=== PATIENT | male | born 1995 | race Two or more races ===

== ENCOUNTER 2016-09-01 12:43 | Emergency (ER) | payer SELFPAY ==
[~2016-09-01] VITALS: Ht 170.2 cm; Wt 96.2 kg
[2016-09-01] MEDS ORDERED: SODIUM CHLORIDE 0.9% 1,000ML IVBOLUS ONE (13:30)
[2016-09-01] MEDS ORDERED: FAMOTIDINE 20 MG/2 ML IVP ONE (13:30)
[2016-09-01] MEDS ORDERED: SODIUM CHLORIDE FLUSH 10ML SYR IVF ONE (13:30)
[2016-09-01] MEDS ORDERED: FAMOTIDINE 20 MG/2 ML ONE (13:40)
[2016-09-01] MEDS ORDERED: HYDROmorphone 1 MG/ML, 1ML ONE ×2 (13:40→14:15)
[2016-09-01] MEDS: HYDROmorphone 1 MG/ML, 1ML IVPush PRN ×2 (13:45→14:17)
[2016-09-01 13:56] LABS: ASPARTATE AMINO TRANSFERASE 48 U/L (15-37); BLOOD UREA NITROGEN 11 mg/dL (7-18)
[2016-09-01 16:00] VITALS: BP 132/90
== END 2016-09-01 16:01 | disposition home or self-care (01) ==
LOC: ED 14:32
DX: K59.00 Constipation, unspecified (principal)
CPT/HCPCS: 36415; 74020; 80053; 81003; 83690; 85025; 96361; 96374; 96376; 99285; J1170; J7030; S0028

== ENCOUNTER 2016-10-23 18:45 | Observation (INO) | payer OTHER ==
[~2016-10-23] VITALS: Ht 170.2 cm; Wt 91.1 kg
[2016-10-23] MEDS ORDERED: ALPR1TAB2 PO (19:05)
[2016-10-23 19:35] LABS: HEMOGLOBIN 15.9 g/dL (13.7-18.0); WHITE BLOOD COUNT 10.2 x10^3/uL (3.4-10)
[2016-10-23 19:44] LABS: BLOOD UREA NITROGEN 11 mg/dL (7-18)
[2016-10-23 19:47] LABS: ASPARTATE AMINO TRANSFERASE 23 U/L (15-37)
[2016-10-23 19:59] LABS: ACETAMINOPHEN < 2 mcg/mL (10-30)
[2016-10-23 20:04] LABS: DAU SCREEN DISCLAIMER
[2016-10-24] MEDS ORDERED: INSULIN ASPART 100 UNITS/ML, PEN SQ-INSULIN SCH (07:00)
[2016-10-24 08:44] VITALS: BP 115/75
[2016-10-24 19:51] VITALS: BP 120/77
[2016-10-25 06:02] LABS: BLOOD UREA NITROGEN 10 mg/dL (7-18)
[2016-10-25 08:25] VITALS: BP 112/69
[2016-10-25 20:38] VITALS: BP 120/70
[2016-10-25] MEDS: LAMOTRIGINE 25 MG TABLET PO SCH (20:47)
[2016-10-26 07:25] VITALS: BP 121/57
[2016-10-26] MEDS: LAMOTRIGINE 25 MG TABLET PO SCH (08:53)
== END 2016-10-26 10:31 ==
LOC: ED 19:12 → EDIP 23:03 → 3E 10-24 00:20
PROVIDERS: ADMIT Family Medicine; ATTEND Family Medicine
DX: T40.602A Poisoning by unspecified narcotics, intentional self-harm, initial encounter (principal); R73.9 Hyperglycemia, unspecified; N17.0 Acute kidney failure with tubular necrosis; F41.9 Anxiety disorder, unspecified; Y92.89 Other specified places as the place of occurrence of the external cause; Z82.49 Family history of ischemic heart disease and other diseases of the circulatory system; Z83.3 Family history of diabetes mellitus
CPT/HCPCS: 36415; 80048; 80053; 80307; 80329; 83036; 85025; 99285; G0378; G0480

== ENCOUNTER 2019-02-14 16:23 | Emergency (ER) | payer MEDICAID ==
[~2019-02-14] VITALS: Ht 170.2 cm; Wt 105.4 kg
[~2019-02-14 16:23] MED LIST: ALPR1TAB2 PO
[2019-02-14] MEDS ORDERED: SODIUM CHLORIDE 0.9% 1,000 ML IV ONE (16:25)
[2019-02-14] MEDS ORDERED: LORazepam 2 MG/ML, 1ML IVPush ONE (16:30)
[2019-02-14] MEDS ORDERED: ONDANSETRON 2MG/ML, 2ML IVPush ONE (16:30)
[2019-02-14] MEDS ORDERED: ONDANSETRON 2MG/ML, 2ML ONE (16:34)
[2019-02-14] MEDS ORDERED: LORazepam 2 MG/ML, 1ML ONE ×2 (16:35→16:41)
--- NOTE | 2019-02-14 16:46 | NUR ---
THIS IS A 23 YO M BIB [facility] FOR ALOC. FATHER REPORTS GIVING PATIENT 1 OF NARCAN AT HOME. [facility] GAVE 1 OF NARCAN. PATIENT DENIES TAKING OPIATES BUT TAKES GHB AND STATES "I'M GOING THROUGH GHB WITHDRAWAL". PATIENT IS HYPERVENTILATING AND STATES HE IS HAVING TACHYCARDIA. HR IS 85. VS STABLE. FATHER IS AT BEDSIDE. PATIENT MEDICATED WITH 2MG ATIVAN IM.
--- NOTE | 2019-02-14 16:49 | NUR ---
FATHER STATES THAT HIS BROTHER CALLED REPORTING THAT THE PATIENT WAS UNRESPONSIVE.
[2019-02-14] MEDS ORDERED: ONDANSETRON ODT 8 MG ONE (16:55)
--- NOTE | 2019-02-14 16:55 | NUR ---
PATIENT VOMITED A SMALL AMOUNT OF EMESIS.
[2019-02-14] MEDS ORDERED: LORazepam 2 MG/ML, 1ML IM ONE (17:00)
[2019-02-14] MEDS ORDERED: ONDANSETRON ODT 8 MG PO ONE (17:00)
--- NOTE | 2019-02-14 17:06 | NUR ---
PATIENT AWARE WE NEED URINE SAMPLE.
[2019-02-14 17:13] LABS: BASOPHILS # (AUTO) 0.07 x10^3/uL (0-0.1); BASOPHILS % (AUTO) 1 % (0-1); EOSINOPHILS # (AUTO) 0.24 x10^3/uL (0-0.4); EOSINOPHILS % (AUTO) 2 % (1-7); LYMPHOCYTES # (AUTO) 2.46 x10^3/uL (1-3.4); LYMPHOCYTES % (AUTO) 19 % (22-44); MD NO; MEAN CORPUSCULAR HEMOGLOBIN 29.4 pg (27.5-34.5); MEAN CORPUSCULAR HGB CONC 31.8 g/dL (33.2-36.2); MEAN CORPUSCULAR VOLUME 92.7 fL (81-97); MEAN PLATELET VOLUME 8.1 fL (7.4-10.4); MONOCYTES # (AUTO) 0.61 x10^3/uL (0.2-0.8); MONOCYTES % (AUTO) 5 % (2-9); NEUTROPHILS # (AUTO) 9.55 x10^3/uL (1.8-6.8); NEUTROPHILS % (AUTO) 74 % (42-75); PLATELET COUNT 387 x10^3/uL (130-400); RED BLOOD COUNT 5.96 x10^6/uL (4.38-5.82); RED CELL DISTRIBUTION WIDTH 15.5 % (9.4-14.8)
[2019-02-14 17:19] LABS: ALBUMIN 4.2 g/dL (3.4-5.0); ANION GAP 14 mmol/L (5-15); CALCIUM 9.4 mg/dL (8.5-10.1); CHLORIDE 107 mmol/L (98-107)
--- NOTE | 2019-02-14 17:22 | NUR ---
PATIENT PLACED ON 2L NC.
[2019-02-14 17:23] LABS: ALANINE AMINOTRANSFERASE 104 U/L (12-78); ALKALINE PHOSPHATASE 55 U/L (45-117); BILIRUBIN,TOTAL 0.9 mg/dL (0.2-1.0); CREATININE 1.23 mg/dL (0.7-1.3); TOTAL PROTEIN 9.1 g/dL (6.4-8.2)
[2019-02-14 17:24] LABS: SALICYLATE LEVEL < 1.7 mg/dL (2.8-20.0)
--- NOTE | 2019-02-14 17:28 | NUR ---
RADIOLOGY IN ROOM.
--- NOTE | 2019-02-14 17:50 | NUR ---
FATHERS PHONE NUMBER IS [phone]
--- NOTE | 2019-02-14 18:15 | NUR ---
PATIENT IS SLEEPING ON GURNEY, SNORING, CHEST RISE AND FALL PRESENT. VS STABLE. WILL CONTINUE TO MONITOR.
--- NOTE | 2019-02-14 18:42 | NUR ---
Pt report from clark pickering. This rn to assume care of pt. Pt sleeping comfortably on gurney. Rr even and unlabored. Nadn. Pike.
--- NOTE | 2019-02-14 18:48 | NUR ---
Pt awoken from painful stimuli and aa+ox4. at bedside for reassessment. Md states "no tolentino" on the ua and not needed at this time. Pt self reports drug use of only ghb. Pt is slow to respond to questions, but responds appropriately.
--- NOTE | 2019-02-14 19:24 | NUR ---
Pt responsive to name and a+ox4. Pt no longer sluggish to respond and conversing appropriately. PT maintaining O2 sat off oxygen.
[2019-02-14 19:25] VITALS: BP 112/53
--- NOTE | 2019-02-14 19:32 | NUR ---
Pt states he self doses himself w/ GHB for anxiety attacks. Aware of dangers of utilizing ghb and pt educated on dangers and not to utilize.
--- NOTE | 2019-02-14 19:43 | NUR ---
Father called for a ride for eminent d/c. Awaiting ride.
--- NOTE | 2019-02-14 19:47 | NUR ---
Pt denies any attempts of self harm tonight or any si.
--- NOTE | 2019-02-14 20:16 | NUR ---
Pt came to ed w/o shoes or shirt. Given shirt and socks prior to d/c.
== END 2019-02-14 20:24 | disposition home or self-care (01) ==
LOC: ED 18:08
DX: T50.991A Poisoning by other drugs, medicaments and biological substances, accidental (unintentional), initial encounter (principal); Y92.89 Other specified places as the place of occurrence of the external cause
CPT/HCPCS: 36415; 71045; 80053; 80307; 85025; 93005; 96361; 96372; 96374; 99284; J2060; J7030; Q0162

== ENCOUNTER 2019-07-10 09:23 | Emergency (ER) | payer MEDICAID ==
[~2019-07-10] VITALS: Ht 172.7 cm; Wt 104.0 kg
[2019-07-10] MEDS ORDERED: MAALOX/HYOSCYAMINE/LIDOCAINE 45 ML BTL ONE (09:58)
[2019-07-10] MEDS ORDERED: MAALOX/HYOSCYAMINE/LIDOCAINE 45 ML BTL PO ONE (10:00)
--- NOTE | 2019-07-10 10:02 | NUR ---
pt presents to ED with c/o left sided chest pain, constant for last 3 days. pt notes chest pain is improved with exertion, denies aggravating factors. pt states he does have SOB with exertion, states this is worsened when he places a mask on face for outings. pt denies cough/sore throat. pt notes he has had intermittent chest pain for a long time, however this chest pain has been constant and unrelieved by usual alleviating factor (massage). 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 pt a&o, resps even and unlabored. nsr on telemetry monitor with no ectopy. pt able to speak in full sentences without difficulty. EKG taken in triage. all monitors in place. pt medicated per emar, tolerated well. call light in reach. awaiting cxr, lab and dispo.
[2019-07-10 10:32] LABS: MEAN CORPUSCULAR HEMOGLOBIN 28.8 pg (27.5-34.5); MEAN CORPUSCULAR HGB CONC 32.3 g/dL (33.2-36.2); MEAN CORPUSCULAR VOLUME 89.1 fL (81-97); MEAN PLATELET VOLUME 7.8 fL (7.4-10.4); PLATELET COUNT 275 x10^3/uL (130-400); RED BLOOD COUNT 5.72 x10^6/uL (4.38-5.82); RED CELL DISTRIBUTION WIDTH 16.3 % (9.4-14.8)
[2019-07-10 10:46] LABS: ALANINE AMINOTRANSFERASE 70 U/L (12-78); ALBUMIN 3.8 g/dL (3.4-5.0); ANION GAP 8 mmol/L (5-15); CALCIUM 8.5 mg/dL (8.5-10.1); CHLORIDE 111 mmol/L (98-107); CREATININE 1.26 mg/dL (0.7-1.3)
[2019-07-10 10:51] LABS: ALKALINE PHOSPHATASE 62 U/L (45-117); BILIRUBIN,TOTAL 0.4 mg/dL (0.2-1.0); TOTAL PROTEIN 8.1 g/dL (6.4-8.2); TROPONIN I < 0.015 ng/mL (0.000-0.045)
[2019-07-10 10:58] LABS: BASOPHILS # (AUTO) 0.05 x10^3/uL (0-0.1); BASOPHILS % (AUTO) 1 % (0-1); EOSINOPHILS % (AUTO) 4 % (1-7); LYMPHOCYTES # (AUTO) 2.65 x10^3/uL (1-3.4); LYMPHOCYTES % (AUTO) 56 % (22-44); MD SCAN; MONOCYTES # (AUTO) 0.37 x10^3/uL (0.2-0.8); MONOCYTES % (AUTO) 8 % (2-9); NEUTROPHILS # (AUTO) 1.46 x10^3/uL (1.8-6.8); NEUTROPHILS % (AUTO) 31 % (42-75)
[2019-07-10 11:01] VITALS: BP 116/68
--- NOTE | 2019-07-10 11:01 | NUR ---
pt resting on gurney, a&o, resps even and unlabored. sinus rafi rate 50s on quality assurance monitor chassis with no ectopy noted. pt reports CP level still 2/10, denies sob. awaiting lab results and dispo at this time.
--- NOTE | 2019-07-10 11:46 | NUR ---
discharge orders received, this RN went to provide discharge patient and provide dc rx, room empty. pt gown and bp cuff/spo2 monitors on bed. this RN unable to provide dc education/script as pt has left the department.
== END 2019-07-10 11:47 | disposition home or self-care (01) ==
LOC: ED 10:47
DX: R07.89 Other chest pain (principal); R06.02 Shortness of breath
CPT/HCPCS: 36415; 71045; 80053; 83690; 84484; 85025; 93005; 99285